=== PATIENT | male | born 1960 | race Caucasian/White ===

== ENCOUNTER 2018-09-16 21:59 | Emergency (ER) | END 2018-09-17 08:16 ==

== ENCOUNTER 2018-12-11 11:33 | Emergency (ER) | payer OTHER ==
[~2018-12-11] VITALS: Ht 167.6 cm; Wt 72.7 kg
[2018-12-11 11:43] VITALS: Ht 167.6 cm; Wt 72.7 kg
[2018-12-11] MEDS ORDERED: ONDANSETRON 4 MG INJ IV STA (13:43)
[2018-12-11] MEDS ORDERED: SOD CHLORIDE 0.9% 500 ML IV STA (13:43)
[2018-12-11] MEDS ORDERED: GLIP5TAB13 PO (14:18)
[2018-12-11] MEDS ORDERED: ASPI-817 PO (14:19)
[2018-12-11] MEDS ORDERED: MTF1000T PO (14:19)
[2018-12-11] MEDS ORDERED: LANT3I SC ×2 (14:19→16:45)
[2018-12-11] MEDS ORDERED: FURO20TA3 PO (14:20)
[2018-12-11] MEDS ORDERED: PROP60CA PO (14:22)
[2018-12-11] MEDS ORDERED: SPIR100T4 PO (14:22)
[2018-12-11] MEDS ORDERED: LACT20SO2 PO (14:22)
[2018-12-11] MEDS ORDERED: GLIM2TAB PO (14:23)
[2018-12-11] MEDS ORDERED: HYDR-4011 PO (14:23)
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
[2018-12-11] MEDS ORDERED: LACTULOSE 30ML CUP PO ONE (16:30)
[2018-12-11] MEDS ORDERED: LACT10SO5 PO (16:30)
[2018-12-11 16:43] VITALS: BP 159/69; PULSE 100; RESP 22
[2018-12-11] MEDS ORDERED: MELA1TAB9 PO (16:45)
[2018-12-11] MEDS ORDERED: FURO-109 PO (16:45)
== END 2018-12-11 17:07 | disposition home or self-care (01) ==
LOC: E/R 11:33
DX: K74.60 Unspecified cirrhosis of liver (principal); I10 Essential (primary) hypertension; E11.9 Type 2 diabetes mellitus without complications; R18.8 Other ascites; E72.20 Disorder of urea cycle metabolism, unspecified; Z79.4 Long term (current) use of insulin; Z79.82 Long term (current) use of aspirin
CPT/HCPCS: 36415; 74176; 80053; 82140; 83690; 84484; 85025; 85610; 85730; 87400; 93005; 96374; J2405; J7040; Z7502; Z7610